=== PATIENT | male | born 1970 | race American Indian/Alaskan Native ===

== ENCOUNTER 2020-08-05 05:57 | Emergency (ER) | payer SELFPAY ==
[2020-08-05 06:09] VITALS: BP 128/77
--- NOTE | 2020-08-05 06:51 | XRay Report ---
LUMBAR SPINE 3 VIEWS INDICATION / CLINICAL INFORMATION: back pain COMPARISON: None available. FINDINGS: BONES / JOINT(S): No acute fracture or subluxation. Minimal DDD L3-L4. SOFT TISSUES: No significant abnormality. ADDITIONAL FINDINGS: None. Signer Name: Jayant Foster MD Signed: 08/05/2020 6:47 AM Workstation Name: [id number]
[2020-08-05] MEDS ORDERED: KETOROLAC 60 MG/2 ML INJ IM ONE (07:07)
[2020-08-05] MEDS ORDERED: CYCLOBENZAPRINE 10 MG TAB PO ONE (07:07)
--- NOTE | 2020-08-05 07:16 | Emergency Department Report ---
ED Back Pain/Injury HPI - General Chief Complaint: Back Pain/Injury Stated Complaint: BACK PAIN Time Seen by Provider: 08/05/20 06:58 Source: patient Limitations: No Limitations - History of Present Illness Initial Comments: Patient is a 49-year-old male who presents emergency room with complaints of right lower back pain. 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 He states that last night his back was hurting him and then he fell to the ground. He was ambulatory immediately afterwards and has been since then without difficulty. He is complaining of right lower back pain that radiates down his right leg. He denies any complete numbness, unilateral weakness, bowel or bladder incontinence, urinary symptoms, urinary retention, fever, vomiting, diarrhea. He denies any past medical history or allergies to medications. He denies any history of cancer, steroid use, history of IV drug use. - Related Data Previous Rx's Medication Instructions Recorded Last Taken Type Menthol/Camphor [Melrose Waldron 1 applic TP BID #18 oint...g. 08/05/20 Unknown Rx Ointment] Naproxen [EC-Naprosyn] 500 mg PO BID PRN #14 tablet. 08/05/20 Unknown Rx methOCARBAMOL [Robaxin TAB] 500 mg PO BID PRN #14 tablet 08/05/20 Unknown Rx Allergies Allergy/AdvReac Type Severity Reaction Status Date / Time No Known Allergies Allergy Unverified 08/05/20 06:10 ED Review of Systems ROS: Stated complaint: BACK PAIN Other details as noted in HPI Comment: All other systems reviewed and negative ED Past Medical Hx - Past Medical History Previous Medical History?: No - Surgical History Past Surgical History?: No - Social History Smoking Status: Current Every Day Smoker Substance Use Type: Marijuana - Medications Home Medications: Home Medications Medication Instructions Recorded Confirmed Last Taken Type Menthol/Camphor [Melrose Waldron 1 applic TP BID #18 oint...g. 08/05/20 Unknown Rx Ointment] Naproxen [EC-Naprosyn] 500 mg PO BID PRN #14 tablet. 08/05/20 Unknown Rx methOCARBAMOL [Robaxin TAB] 500 mg PO BID PRN #14 tablet 08/05/20 Unknown Rx ED Physical Exam - General Limitations: No Limitations General appearance: alert, in no apparent distress - Head Head exam: Present: atraumatic, normocephalic - Eye Eye exam: Present: normal appearance - ENT ENT exam: Present: mucous membranes moist - Neck Neck exam: Present: normal inspection, full ROM. Absent: tenderness - Respiratory Respiratory exam: Present: normal lung sounds bilaterally. Absent: respiratory distress, wheezes, rales, rhonchi, stridor, chest wall tenderness, accessory muscle use, decreased breath sounds, prolonged expiratory - Cardiovascular Cardiovascular Exam: Present: regular rate, normal rhythm, normal heart sounds. Absent: systolic murmur, diastolic murmur, rubs, gallop - Back Exam Back exam: Present: normal inspection, full ROM, paraspinal tenderness (right sided lumbar paraspinal muscular ttp, no midline C-spine, T-spine, or L-spine ttp, no step offs, no deformities). Absent: vertebral tenderness - Neurological Exam Neurological exam: Present: alert, oriented X3, CN II-XII intact, normal gait. Absent: motor sensory deficit - Psychiatric Psychiatric exam: Present: normal affect, normal mood - Skin Skin exam: Present: warm, dry, intact ED Course Vital Signs 08/05/20 06:01 Temperature 98.2 F Pulse Rate 57 L Respiratory 18 Rate Blood Pressure 128/77 O2 Sat by Pulse 98 Oximetry ED Medical Decision Making - Radiology Data Radiology results: report reviewed LUMBAR SPINE 3 VIEWS INDICATION / CLINICAL INFORMATION: back pain COMPARISON: None available. FINDINGS: BONES / JOINT(S): No acute fracture or subluxation. Minimal DDD L3-L4. SOFT TISSUES: No significant abnormality. ADDITIONAL FINDINGS: None. Signer Name: Jayant Foster MD Signed: 08/05/2020 6:47 AM Workstation Name: [id number] Transcribed By: ES Dictated By: Jayant Foster MD Electronically Authenticated By: Jayant Foster MD Signed Date/Time: 08/05/20646 DD/ 6 TD/TT: - Medical Decision Making Patient is a 49-year-old male who presents emergency room with complaints of right lower back pain. 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 He states that last night his back was hurting him and then he fell to the ground. He was ambulatory immediately afterwards and has been since then without difficulty. He is complaining of right lower back pain that radiates down his right leg. He denies any complete numbness, unilateral weakness, bowel or bladder incontinence, urinary symptoms, urinary retention, fever, vomiting, diarrhea. He denies any past medical history or allergies to medications. He denies any history of cancer, steroid use, history of IV drug use. VSS. on exam: right sided lumbar paraspinal muscular ttp, no midline C-spine, T-spine, or L- spine ttp, no step offs, no deformities, no neuro deficits. XR lumbar spine ordered prior to my examination and shows BONES / JOINT(S): No acute fracture or subluxation. Minimal DDD L3-L4. SOFT TISSUES: No significant abnormality. ADDITIONAL FINDINGS: None. Patient has no red flag warning signs of back pain, no significant trauma, no unexplained weight loss, no neurological deficits, age is not greater than 50, no fever, no IV drug use, no steroid use, no history of cancer. Examination appears most consistent with sciatica versus muscle strain. Patient given Toradol and Flexeril while in the emergency department as he did not drive and symptoms improved. Patient given prescription for Robaxin and naproxen and tiger balm ointment. advised pt Please use medication as prescribed. Do not drive, work, or operate heavy machinery while taking muscle relaxer (robaxin). May use ice pack, heating pad, rest, Epson salt bath. Please do the stretches for sciatica. Follow-up with a primary care doctor. Follow-up with an orthopedic doctor. Return to emergency room for any new or worsening symptoms. - Differential Diagnosis muscle strain, fx, dislocation, DDD, bulging disc, lumbar radiculopathy Critical care attestation.: If time is entered above; I have spent that time in minutes in the direct care of this critically ill patient, excluding procedure time. ED Disposition Clinical Impression: Lower back pain Qualifiers: Chronicity: acute Back pain laterality: right Sciatica presence: with sciatica Sciatica laterality: sciatica of right side Qualified Code(s): M54.41 - Lumbago with sciatica, right side Disposition: TO HOME OR SELFCARE Is pt being admited?: No Does the pt Need Aspirin: No Condition: Stable Instructions: Muscle Strain (ED), Sciatica (ED) Additional Instructions: Please use medication as prescribed. Do not drive, work, or operate heavy machinery while taking muscle relaxer (robaxin). May use ice pack, heating pad, rest, Epson salt bath. Please do the stretches for sciatica. Follow-up with a primary care doctor. Follow-up with an orthopedic doctor. Return to emergency room for any new or worsening symptoms. Prescriptions: Naproxen [EC-Naprosyn] 500 mg PO BID PRN #14 tablet. PRN Reason: pain methOCARBAMOL [Robaxin TAB] 500 mg PO BID PRN #14 tablet PRN Reason: pain Menthol/Camphor [Melrose Waldron Ointment] 1 applic TP BID #18 oint...g. Referrals: PRIMARY CAREMD [Primary Care Provider] - 2-3 Days RICH DACOSTA MD [Staff Physician] - 2-3 Days [facility] [Provider Group] - 2-3 Days [facility], [LAB/CONTRACT] - 2-3 Days MODESTA JIN MD [Staff Physician] - 2-3 Days [facility] [Provider Group] - 2-3 Days Time of Disposition: 07:10 Print Language: SWEDISH
== END 2020-08-05 07:21 | disposition home or self-care (01) ==
LOC: ED 05:57
DX: M54.5 Low back pain (principal); F17.200 Nicotine dependence, unspecified, uncomplicated; F12.10 Cannabis abuse, uncomplicated; Z79.899 Other long term (current) drug therapy
CPT/HCPCS: 72100; 96372; 99283; J1885